=== PATIENT | female | born 1980 | race Caucasian/White ===

== ENCOUNTER 2017-02-09 10:27 | Inpatient (IN) | payer MEDICAID ==
[~2017-02-09] VITALS: Ht 154.9 cm; Wt 79.4 kg
[~2017-02-09 10:27] MED LIST: CEPH-443 PO; IBUP-1542 PO
[2017-02-09 10:49] VITALS: Ht 154.9 cm; Wt 79.4 kg
[2017-02-09 10:51] VITALS: BP 114/74; PULSE 96; RESP 18
[2017-02-09] MEDS ORDERED: BUTORPHANOL 2 MG INJ IV PRN ×2 (13:30)
[2017-02-09] MEDS ORDERED: MISOPROSTOL 200 MCG TAB PR PRN (13:30)
[2017-02-09] MEDS ORDERED: METHYLERGONOVINE 0.2 MG INJ IM PRN (13:30)
[2017-02-09] MEDS ORDERED: LACTATED RINGER'S 1,000 ML IV PRN (13:30)
[2017-02-09] MEDS ORDERED: LIDOCAINE 1% (MPF) 30 ML INJ INJ PRN (13:30)
[2017-02-09] MEDS ORDERED: OXYTOCIN 30 UNITS/LR 500 ML IV SCH ×3 (13:30→15:15)
[2017-02-09] MEDS ORDERED: CARBOPROST 250 MCG INJ IM PRN (13:30)
[2017-02-09] MEDS ORDERED: OXYTOCIN 30 UNITS/LR 500 ML IV PRN (13:30)
--- NOTE | 2017-02-09 14:15 | RADRPT ---
PROCEDURE: US OB biophysical profile. CLINICAL INDICATION: evaluation TECHNIQUE: Multiple sonographic images of the pelvis were obtained. The images were reviewed on a PACS workstation. COMPARISON: No prior studies are available for comparison. FINDINGS: There is a single viable intrauterine gestation. Cardiac activity is present with 136 beats per min mildred. There is a vertex presentation. The placenta is anterior. There is no evidence of placental abruption. There is a low amount of amniotic fluid with an CANDY = 4.8 cm. Biophysical profile: movement 2/2 tone 2/2. breathing 2/2 CANDY 0/2 Total 6/8 RPTAT: AA . IMPRESSION: Abnormal biophysical profile score of 6/8 due to a low amniotic fluid index of 4.8 cm. Physician José Date Time Electronically viewed and signed by Physician José on 02/09/2017 14:15 /
[2017-02-09 14:39] LABS: BASOPHILS % 0.4 % (0.0-2.0); EOSINOPHILS # 0.1 10^3/ul (0.0-0.5); EOSINOPHILS % 0.5 % (0.0-7.0); HEMATOCRIT 34.5 % (37.0-47.0); HEMOGLOBIN 11.2 g/dl (12.0-16.0); LYMPHOCYTES # 2.5 10^3/ul (0.8-2.9); LYMPHOCYTES % 21.9 % (15.0-51.0); MEAN CORPUSCULAR HEMOGLOBIN 25.9 pg (29.0-33.0); MEAN CORPUSCULAR HGB CONC 32.5 g/dl (32.0-37.0); MEAN CORPUSCULAR VOLUME 79.7 fl (82.0-101.0); MEAN PLATELET VOLUME 10.3 fl (7.4-10.4); MONOCYTE # 0.5 10^3/ul (0.3-0.9); MONOCYTES % 4.4 % (0.0-11.0); NEUTROPHIL # 8.2 10^3/ul (1.6-7.5); NEUTROPHILS % 72.4 % (39.0-77.0); PLATELET COUNT 323 10^3/UL (140-415); RED BLOOD COUNT 4.33 10^6/ul (4.20-5.40); RED CELL DISTRIBUTION WIDTH 13.7 % (11.5-14.5); WHITE BLOOD COUNT 11.3 10^3/ul (4.8-10.8)
[2017-02-09 15:01] LABS: INR 0.93; PARTIAL THROMBOPLASTIN TIME 26.7 Sec (25.0-35.0); PROTIME 12.5 Sec (12.2-14.2)
[2017-02-09] MEDS: LACTATED RINGER'S 1,000 ML IV SCH ×2 (15:25→17:47)
[2017-02-09] MEDS ORDERED: AMPICILLIN 2 GM/NS (PMX) 100 ML IV ONE (15:30)
--- NOTE | 2017-02-09 17:41 | HP ---
Date/Time of Note Date/Time of Note DATE: 02/09/17 TIME: 17:34 OB - History Hx of Present Free Text/Dictation 36 years old female 38 weeks and 2 days , admitted to the hospital in early ,labor pelvic examination and admission cervix 2 cm dilated 50% effaced -3 station category 1 heart tracing, contraction every 2-5 minutes moderate quality Chief Complaint: Labor contraction Estimated Due Date: Feb 21, 2017 : 5 Para: 3 Spontaneous : 1 Care: Limited Care Ultrasounds: Normal mid trimester US Obstetrical Complications: None Medical Complications: None Past Family/Social History * Past Medical, Surgical, Family and Obstetric Histories reviewed from chart. Rubella: immune RPR/VDRL: Negative GBS Status: Negative HBsAG: Negative OB Admission Exam Vital Signs Vital Signs Vital Signs Date Time Temp Pulse Resp B/P Pulse Ox O2 Delivery O2 Flow Rate FiO2 02/09/17 10:51 99.1 96 18 114/74 Room Air Physical Exam HEENT: WNL Heart: Rhythm Normal Lungs: Clear, Equal Abdomen: WNL Extremities: Normal Reflexes: Normal Cervical Dilatation: 2cm Effacement: 50% Station: -3 Membranes: Intact Heart Rate: 130's Accelerations: Accelerations Present Decelerations: No Decelerations Varibility: Moderate Contractions on Admission: >10 Minutes Apart Intensity: Moderate Last 72 hours Lab Results CBC & BMP 02/09/17 14:15 OB Assessment/Plan Reason for admission: other (Early labor) Plan: Expectant Management Other plan: 38 weeks 2 days admitted in early labor contraction 2-5 minutes with moderate quality category 1 heart tracing, cervix 2 cm dilated 50% effaced vertex at -3 station she will be observed for expecting management for vaginal delivery MELVIN ABRAHAM MD Feb 09, 2017 17:41
[2017-02-09] MEDS ORDERED: AMPICILLIN 1 GM/NS (PMX) 50 ML IV SCH (19:30)
[2017-02-09] MEDS ORDERED: FENTAnyl 2MCG/ML-ROPIV 0.2% 100 ML ONE (20:33)
--- NOTE | 2017-02-09 23:16 | LDN ---
Date/Time of Note Date/Time of Note DATE: 02/09/17 TIME: 23:14 Delivery Summary Weeks of Gestation 38 weeks Placenta Delivered: Spontaneously Meconium: none Episiotomy: No Perineal laceration: 0 Anesthesia type: Epidural Estimated blood loss: 100 Sponge & Needle done & correct: Yes All needle counts correct: Yes Any foreign bodies felt in the: No Problems: Infant Delivery Information Sex Sex: male Apgars 1 Minute: 9 5 Minute: 9 Suctioning Nose & mouth suctioned at zohra: Yes Delee suction performed: No Umbilical Cord Umbilical cord with: 3 Vessels Cord presentations: no nuchal cord Cord Blood was obtained: Yes Mother & Baby Disposition Disposition Mom & Baby to Maternity; Good: Yes JONATAN TEMPLE MD Feb 09, 2017 23:16
[2017-02-09 23:59] VITALS: BP 110/61; PULSE 87; RESP 20
[2017-02-10] MEDS: LACTATED RINGER'S 1,000 ML IV* SCH ×2 (01:06→09:06)
[2017-02-10] MEDS ORDERED: DIBUCAINE 1% 30 GM OINT PR PRN (01:30)
[2017-02-10] MEDS ORDERED: CARBOPROST 250 MCG INJ IM PRN (01:30)
[2017-02-10] MEDS ORDERED: ACETAMINOPHEN 325 MG TAB PO PRN (01:30)
[2017-02-10] MEDS ORDERED: BENZOCAINE 20% 56 ML SPRAY TOP PRN (01:30)
[2017-02-10] MEDS ORDERED: METHYLERGONOVINE 0.2 MG INJ IM PRN (01:30)
[2017-02-10] MEDS ORDERED: OXYTOCIN 30 UNITS/LR 500 ML IV PRN (01:30)
[2017-02-10] MEDS ORDERED: MISOPROSTOL 200 MCG TAB PR PRN (01:30)
[2017-02-10] MEDS ORDERED: HYDROCODONE/APAP (5/325) TAB PO PRN (01:30)
[2017-02-10] MEDS ORDERED: WITCH HAZEL/GLYCERIN PAD PR PRN (01:30)
[2017-02-10 04:06] VITALS: BP 112/64; PULSE 70; RESP 20
[2017-02-10] MEDS: IBUPROFEN 600 MG TAB PO SCH ×4 (05:20→23:47)
[2017-02-10 08:30] VITALS: BP 108/64; PULSE 69; RESP 18
[2017-02-10] MEDS: SENNA/DOCUSATE NA (8.6MG/50MG) TAB PO SCH ×2 (08:41→21:06)
--- NOTE | 2017-02-10 09:55 | QN ---
Documentation Comment Post normal vaginal delivery day 1 Afebrile Vital signs are stable Abdomen soft, uterus firm, lochia normal extremity normal, ambulation encouraged MELVIN ABRAHAM MD Feb 10, 2017 09:55
[2017-02-10 10:47] LABS: BASOPHIL # 0.1 10^3/ul (0.0-0.1); BASOPHILS % 0.4 % (0.0-2.0); EOSINOPHILS # 0.1 10^3/ul (0.0-0.5); EOSINOPHILS % 0.7 % (0.0-7.0); HEMATOCRIT 34.8 % (37.0-47.0); HEMOGLOBIN 11.3 g/dl (12.0-16.0); LYMPHOCYTES # 3.3 10^3/ul (0.8-2.9); LYMPHOCYTES % 24.3 % (15.0-51.0); MEAN CORPUSCULAR HEMOGLOBIN 26.3 pg (29.0-33.0); MEAN CORPUSCULAR HGB CONC 32.5 g/dl (32.0-37.0); MEAN CORPUSCULAR VOLUME 81.1 fl (82.0-101.0); MEAN PLATELET VOLUME 10.7 fl (7.4-10.4); MONOCYTE # 0.6 10^3/ul (0.3-0.9); MONOCYTES % 4.4 % (0.0-11.0); NEUTROPHIL # 9.6 10^3/ul (1.6-7.5); NEUTROPHILS % 69.9 % (39.0-77.0); PLATELET COUNT 329 10^3/UL (140-415); RED BLOOD COUNT 4.29 10^6/ul (4.20-5.40); WHITE BLOOD COUNT 13.7 10^3/ul (4.8-10.8)
[2017-02-10 12:00] VITALS: BP 112/69; PULSE 82; RESP 18
[2017-02-10 16:08] VITALS: BP 110/70; PULSE 81; RESP 18
[2017-02-10 20:30] VITALS: BP 114/72; PULSE 82; RESP 18
[2017-02-11 04:00] VITALS: BP 101/57; PULSE 66; RESP 20
[2017-02-11] MEDS: IBUPROFEN 600 MG TAB PO SCH ×2 (05:58→11:33)
[2017-02-11 07:40] VITALS: BP 107/71; PULSE 83; RESP 20
[2017-02-11] MEDS: SENNA/DOCUSATE NA (8.6MG/50MG) TAB PO SCH (08:44)
[2017-02-11] MEDS ORDERED: INFLUENZA VIRUS VACCINE 0.5 ML (DISPENSING) IM* ONE (09:00)
[2017-02-11] MEDS ORDERED: DIPHTH/TET/ACEL PERTUSS (ADULT) 0.5 ML VIAL IM* ONE (09:00)
--- NOTE | 2017-02-11 10:29 | DS ---
Date/Time of Note Date/Time of Note DATE: 02/11/17 TIME: 10:27 Discharge Summary Admission/Discharge Info Admit Date/Time Feb 09, 2017 at 12:50 Discharge Date/Time Post normal vaginal delivery day 2 Afebrile Vital signs are stable Abdomen soft, uterus firm lochia normal, extremity normal instructions given recommended to make appointment to be seen at the clinic in 2 weeks Patient Condition: Good Procedures Normal vaginal delivery Hx of Present Illness Term in labor Hospital Course Satisfactory unremarkable Home Meds Active Scripts Ibuprofen* (Motrin*) 600 Mg Tab, 600 MG PO Q8, #14 TAB Prov:MADISON GUPTA DO 03/25/15 Cephalexin* (Keflex*) 500 Mg Capsule, 500 MG PO QID for 7 Days, CAP Prov:MADISON GUPTA DO 03/25/15 Follow-up Plan instructions given recommended to make appointment to be seen at the clinic in 2 weeks Primary Care Provider Care Physician No Primary Time spent on discharge: < 30 minutes MELVIN ABRAHAM MD Feb 11, 2017 10:29
== END 2017-02-11 15:19 | disposition home or self-care (01) | DRG 775 ==
LOC: L-D 10:27 → OBT 10:27 → L-D 12:50 → OBT 12:50 → PP1 23:59
PROVIDERS: ADMIT Obstetrics & Gynecology; ATTEND Obstetrics & Gynecology
PROC: 10E0XZZ Delivery of Products of Conception, External Approach (ICD-10-PCS; principal; 2017-02-09)
DX: O80 Encounter for full-term uncomplicated delivery (principal); Z37.0 Single live birth; Z3A.38 38 weeks gestation of pregnancy
CPT/HCPCS: 62319; 76818; 84112; 85025; 85610; 85730; 86592; 86900; 86901; 87340; 90686; 90715; 99464; G0463; J0290; J2590; J3010; J7120